=== PATIENT | female | born 1960 | race Caucasian/White ===

== ENCOUNTER 2017-10-27 12:14 | Observation (INO) | payer OTHER ==
--- NOTE | 2017-10-27 13:00 | RAD REPORT ---
EXAM DESCRIPTION: RAD - Chest Single View - 10/27/2017 12:54 pm CLINICAL HISTORY: Shortness of breath COMPARISON: None. FINDINGS: Portable technique limits examination quality. The lungs appear mildly emphysematous. There is fullness noted in the region of the AP window. While this may be related to the left pulmonary artery; mass or lymphadenopathy is also possible. The heart is normal in size. No displaced fractures. IMPRESSION: Soft tissue fullness in the left AP window noted. Recommend CT chest followup.
[2017-10-27 13:07] LABS: Absolute Lymphocytes (CBC) 2.4 K/uL (0.7-4.9); Absolute Monocytes 0.6 K/uL (0.1-1.3); Absolute Neutrophil 2.2 K/uL (1.8-8.0); Basophils % 0.9 % (0-1.3); Eosinophils % 3.3 % (0-4.4); Hematocrit 37.8 % (36.0-45.0); MCH 27.4 pg (27.0-35.0); MCV 83.1 fL (80-100); MPV 8.9 fL (7.6-11.3); Monocytes % 10.6 % (3.3-12.3); RBC Red Blood Cell Count 4.55 M/uL (3.86-4.86)
[2017-10-27 13:32] LABS: Bicarbonate 25 mEq/L (21-31); Glucose Level 106 mg/dL (65-120); Potassium 4.2 mEq/L (3.6-5.0); Sodium Level 135 mEq/L (135-145)
[2017-10-27 13:38] LABS: ALT/SGPT 18 IU/L (10-60); AST/SGOT 18 IU/L (10-42); Albumin 3.6 g/dL (3.2-5.5); Alkaline Phosphatase 65 IU/L (42-121); BUN Blood Urea Nitrogen 20 mg/dL (6-20); Bilirubin Direct < 0.1 mg/dL (0-0.2); Bilirubin Total 0.3 mg/dL (0.3-1.2); Magnesium 1.7 mg/dL (1.8-2.5); Protein, Total 6.2 g/dL (6.0-8.3)
[2017-10-27 13:45] LABS: Protime INR 1.02
[2017-10-27 14:30] LABS: Thyroid Stimulating Hormone < 0.02 uIU/mL (0.34-5.60)
--- NOTE | 2017-10-27 15:10 | RAD REPORT ---
EXAM DESCRIPTION: CT - Soft Tissue Neck W/Contr - 10/27/2017 2:39 pm CLINICAL HISTORY: Neck pain, thyromegaly with dysplasia TECHNIQUE: During dynamic enhancement using 100 milliliters nonionic IV contrast, axial 5 millimeter thick images of the neck were obtained. All CT scans are performed using dose optimization technique as appropriate and may include automated exposure control or mA/KV adjustment according to patient size. FINDINGS: Intracranial portion examination shows no suspicious findings. Mastoid air cells are clear . No paranasal sinus abnormality. Globes and orbital contents unremarkable. Patient has pronounced enlargement of the thyroid gland with innumerable low-density cysts and nodule s throughout the gland. Inferior left lobe extends into the upper mediastinum. There is a slight righ t deviation of the trachea but no reduction in trachea diameter. Left lobe posteriorly minimally abut s the esophagus. No vocal cord asymmetry or mass identifiable. Lymphoid tissue at the base of the tongue is mildly pro minent but no discrete mass or enhancement seen. No tonsillar enlargement. Parapharyngeal fat is norm al. No prevertebral soft tissue thickening. A few small scattered cervical lymph nodes are present. No bulky or abnormal lymphadenopathy. No acute vascular finding. No dissection or stenosis. No fracture or acute bone process seen. The patient has significant rotation of the C1 ring relative to the C2 body. C1 is normally positioned to the skullbase. The C1 rotation results in rotation of th e mandible relative to the upper neck soft tissues. This creates asymmetrically prominent soft tissue s on the right. An underlying ferritin G 0 mucosal mass is not identified. Patient has advanced disc and endplate degenerative change at C6-7. No significant bony foraminal enc roachment. IMPRESSION: Pronounced thyromegaly with innumerable variably sized low-density masses throughout the thyroid tissue. Inferior aspect of the left lobe extends into the upper mediastinum. The left greater than right thyromegaly causes minimal right deviation of the trachea but no compromi se in the airway diameter. No suspicious mass or lymphadenopathy in the neck soft tissues otherwise noted. Significant rotation of the skullbase and C1 ring relative to C2 causing right-sided rotation of the mandible and facial bones. Baseline for the patient is unknown. No acute bone finding. This could be a muscle spasm or torticollis pattern.
--- NOTE | 2017-10-27 15:15 | RAD REPORT ---
EXAM DESCRIPTION: CT - Thorax W/ Con - 10/27/2017 2:50 pm CLINICAL HISTORY: Thyromegaly, dysphagia COMPARISON: None. TECHNIQUE: Dynamically enhanced 5 mm thick images of the chest were obtained during administration o f 100 mL non-ionic IV contrast. All CT scans are performed using dose optimization technique as appropriate and may include automated exposure control or mA/KV adjustment according to patient size. FINDINGS: Thyromegaly is present with innumerable variably sized low-density masses are nodules thro ughout the gland. The inferior aspect of the left lobe extends into the upper mediastinum. Estimated gland size is 4.9 cm cc by 3.9 cm AP x 3.0 cm TR. Left lobe estimated size is 6.2 cm CC x 4.8 cm AP x 3.4 cm TR. No mass or infiltrate in the lung parenchyma. No pleural thickening or pleural effusion. No pneumotho rax. No chest wall mass or abnormal axillary lymphadenopathy. No mediastinal or hilar mass or lymphadenopathy otherwise noted. IMPRESSION: No mass or infiltrate of the lung parenchyma. No mediastinal or hilar suspicious mass or lymphadenopathy. The fullness in the left hilum in AP window region is summation of normal vasculature. No abnormality in this region. Thyromegaly with measurements detailed above. Inferior left lobe extends into the upper mediastinum.
[2017-10-27] MEDS ORDERED: PROPYLTHIOURACIL 50 MG TAB PO ONE (16:00)
--- NOTE | 2017-10-27 16:20 | EKG ---
Test Date: 2017-10-27 Test Time: 12:51:58 Heel Blacker: TRACI MEASUREMENT RESULTS: Intervals: Rate: 89 AZ: 134 QRSD: 88 QT: 378 QTc: 459 [place]: P: 33 AZ: 134 QRS: 18 T: 26 INTERPRETIVE STATEMENTS: Normal sinus rhythm Normal ECG Compared to ECG 01/08/2009 08:52:33 No significant changes Electronically Signed On 10-27-17 16:19:07 CDT by Feliciano Pizano
[2017-10-27] MEDS ORDERED: IPRATROPIUM BROM 0.5MG/2.5ML NEB PRN (16:34)
[2017-10-27] MEDS ORDERED: ALBUTEROL 2.5 MG/3 ML NEB SOL NEB PRN (16:34)
[2017-10-27] MEDS ORDERED: ONDANSETRON 4 MG/2 ML VIAL IV PRN (16:34)
--- NOTE | 2017-10-27 16:34 | EDPHYS ---
Physician Documentation [facility] Name: Jimena Mccray Age: 57 yrs Sex: Female : 1960 Arrival Date: 10/27/2017 Time: 12:21 Bed 7 Private MD: Caesar Chao ED Physician Sathya Tan HPI: 10/27 13:17 This 57 yrs old Female presents to ER via Ambulatory with complaints of jr8 Shortness Of Breath, Throat swelling, Fever. 13:17 Associated signs and symptoms: Pertinent positives: nervousness, tremor, palpitations. jr8 Severity of symptoms: At their worst the symptoms were moderate in the emergency department the symptoms are unchanged. The patient has experienced a previous episode. The patient has not recently seen a physician. Patient with history of thyroid goiter. Has been on metoprolol for tachycardia. Noted on labs to have hyperthyroidism secondary to the goiter. Stated that today noticed it getting larger. Having trouble swallowing. Stated that her heart rate was in the 130s this morning and feel horrible . 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 - Social history:: Smoking status: Patient uses tobacco products, smokes one-half pack cigarettes per day. ROS: 13:17 Eyes: Negative for injury, pain, redness, and discharge, Abdomen/GI: Negative for jr8 abdominal pain, nausea, vomiting, diarrhea, and constipation, Back: Negative for injury and pain, MS/Extremity: Negative for injury and deformity, Skin: Negative for injury, rash, and discoloration, Neuro: Negative for headache, weakness, numbness, tingling, and seizure. 13:17 ENT: Positive for difficulty swallowing, Negative for drainage from ear(s), ear pain, nasal discharge, rhinorrhea, sinus congestion, sinus pain, sore throat, difficulty handling secretions, hoarseness. 13:17 Neck: Positive for mass. 13:17 Cardiovascular: Positive for palpitations, Negative for chest pain, edema, orthopnea, paroxysmal nocturnal dyspnea. 13:17 Respiratory: Positive for shortness of breath, Negative for cough, dyspnea on exertion, hemoptysis, orthopnea, pleurisy, sputum production, wheezing. Exam: 13:17 Eyes: Pupils equal round and reactive to light, extra-ocular motions intact. Lids and jr8 lashes normal. Conjunctiva and sclera are non-icteric and not injected. Cornea within normal limits. Periorbital areas with no swelling, redness, or edema. ENT: Nares patent. No nasal discharge, no septal abnormalities noted. Tympanic membranes are normal and external auditory canals are clear. Oropharynx with no redness, swelling, or masses, exudates, or evidence of obstruction, uvula midline. Mucous membranes moist. Cardiovascular: Sinust tachycardia with a normal S1 and S2. No gallops, murmurs, or rubs. Normal PMI, no JVD. No pulse deficits. Respiratory: Lungs have equal breath sounds bilaterally, clear to auscultation and percussion. No rales, rhonchi or wheezes noted. No increased work of breathing, no retractions or nasal flaring. Abdomen/GI: Soft, non-tender, with normal bowel sounds. No distension or tympany. No guarding or rebound. No evidence of tenderness throughout. Back: No spinal tenderness. No costovertebral tenderness. Full range of motion. Skin: Warm, dry with normal turgor. Normal color with no rashes, no lesions, and no evidence of cellulitis. MS/ Extremity: Pulses equal, no cyanosis. Neurovascular intact. Full, normal range of motion. Neuro: Awake and alert, GCS 15, oriented to person, place, time, and situation. Cranial nerves II-XII grossly intact. Motor strength 5/5 in all extremities. Sensory grossly intact. Cerebellar exam normal. Normal gait. 13:17 Neck: Thyroid: enlargement, that is moderate, Trachea: is midline with no obvious abnormalities, ROM/movement: is normal, Lymph nodes: no appreciated lymphadenopathy. Vital Signs: 12:27 BP 130 / 74; Pulse 102; Resp 19; Temp 98.0; Pulse Ox 93% on R/A; Weight 74.84 kg; aj Height 5 ft. 6 in. (167.64 cm); 13:30 BP 128 / 68; Pulse 98; Resp 18; Pulse Ox 100% on R/A; hb 15:30 BP 125 / 79; Pulse 87; Resp 17; Pulse Ox 99% on R/A; Pain 0/10; hb 16:30 BP 118 / 86; Pulse 84; Resp 16; Pulse Ox 100% on R/A; hb 17:32 BP 124 / 65; Pulse 82; Resp 17; Pulse Ox 100% on R/A; Pain 0/10; hb 12:27 Body Mass Index 26.63 (74.84 kg, 167.64 cm) aj MDM: 12:31 Patient medically screened. jr8 16:29 Data reviewed: vital signs, nurses notes, lab test result(s), EKG, radiologic studies, jr8 CT scan, plain films. Counseling: I had a detailed discussion with the patient and/or guardian regarding: the historical points, exam findings, and any diagnostic results supporting the discharge/admit diagnosis, lab results, radiology results, the need for further work-up and treatment in the hospital. ED course: Consulted Dr. Yeung. From a surgical stand point nothing can be done until she is medically stable from the hyperthyroidism. Can f/u for FNA later.. 16:33 Physician consultation: Una Jeff MD was called at 16:33, was contacted at 16:33, jr8 regarding admission, to the telemetry unit. consult, patient's condition, and will see patient. 10/27 12:41 Order name: Basic Metabolic Panel; Complete Time: 14:33 10/27 12:41 Order name: BNP; Complete Time: 13:44 10/27 12:41 Order name: CBC with Diff; Complete Time: 13:16 10/27 12:41 Order name: LFT's; Complete Time: 14:33 10/27 12:41 Order name: Magnesium; Complete Time: 14:33 10/27 12:41 Order name: PT-INR; Complete Time: 14:10 10/27 12:41 Order name: XRAY Chest (1 view); Complete Time: 13:01 10/27 12:42 Order name: TSH; Complete Time: 14:33 10/27 12:42 Order name: T4 Free; Complete Time: 14:33 10/27 15:03 Order name: Urine Dipstick--Ancillary (enter results); Complete Time: 17:01 bd 10/27 16:40 Order name: CBC with Automated Diff EDMS 10/27 16:40 Order name: CBC with Automated Diff EDMS 10/27 16:40 Order name: Comprehensive Metabolic Panel [facility] 10/27 16:40 Order name: Comprehensive Metabolic Panel [facility] 10/27 12:41 Order name: EKG; Complete Time: 12:42 [facility] 10/27 12:41 Order name: Cardiac monitoring; Complete Time: 12:58 [facility] 10/27 12:41 Order name: EKG - Nurse/Tech; Complete Time: 12:58 [facility] 10/27 12:41 Order name: IV Saline Lock; Complete Time: 12:58 [facility] 10/27 12:41 Order name: Labs collected and sent; Complete Time: 12:58 [facility] 10/27 12:41 Order name: O2 Per Protocol; Complete Time: 12:58 [facility] 10/27 12:41 Order name: O2 Sat Monitoring; Complete Time: 12:58 [facility] 10/27 12:41 Order name: Urine Dipstick-Ancillary (obtain specimen); Complete Time: 15:55 [facility] 10/27 13:45 Order name: CT Soft Tissue Neck W/contr; Complete Time: 15:13 [facility] 10/27 13:45 Order name: CT Chest W/ Con; Complete Time: 15:18 [facility] 10/27 16:40 Order name: Heart Healthy EDAR Administered Medications: No medications were administered Disposition: 18:47 Co-signature as Attending Physician, Sathya Tan MD. rn Disposition: 10/27/17 16:34 Hospitalization ordered by Una Jeff for Observation. Preliminary diagnosis is Thyrotoxicosis [hyperthyroidism]. - Bed requested for Telemetry/MedSurg (observation). - Status is Observation. hb - Condition is Stable. - Problem is new. - Symptoms have improved. UTI on Admission? No Signatures: Dispatcher [employer] [facility] Cindy Kim Amanda, RN RN aj Nieto, Roman, MD MD rn Roszak, Josh, PA PA [facility] Astrid Garcia RN RN hb Corrections: (The following items were deleted from the chart) 13:20 13:17 Eyes: Negative for injury, pain, redness, and discharge, [place] [id number] 17:03 16:34 Hospitalization Ordered by Una Jeff MD for Observation. Preliminary diagnosis bd is Thyrotoxicosis [hyperthyroidism]. Bed requested for Telemetry/MedSurg (observation). Status is Observation. Condition is Stable. Problem is new. Symptoms have improved. UTI on Admission? No. jr8 18:34 17:03 10/27/2017 16:34 Hospitalization Ordered by Una Jeff MD for Observation. hb Preliminary diagnosis is Thyrotoxicosis [hyperthyroidism]. Bed requested for Telemetry/MedSurg (observation). Status is Observation. Condition is Stable. Problem is new. Symptoms have improved. UTI on Admission? No. bd
--- NOTE | 2017-10-27 16:34 | ER ---
Nurse's Notes [facility] Name: Jimena Mccray Age: 57 yrs Sex: Female : 1960 Arrival Date: 10/27/2017 Time: 12:21 Bed 7 Private MD: Caesar Chao Diagnosis: Thyrotoxicosis [hyperthyroidism] Presentation: 10/27 12:25 Presenting complaint: Patient states: Reports thyroid enlargement, SOB, and aj palpitations that started yesterday. Transition of care: patient was not received from another setting of care. Onset of symptoms was October 26, 2017. Care prior to arrival: None. 12:25 Method Of Arrival: Ambulatory aj 12:25 Acuity: АННА 3 aj 13:13 Initial Sepsis Screen: Does the patient meet any 2 criteria? No. Patient's initial hb sepsis screen is negative. Does the patient have a suspected source of infection? No. Patient's initial sepsis screen is negative. Triage Assessment: 12:27 General: Appears in no apparent distress. uncomfortable, Behavior is calm, cooperative, aj appropriate for age. Pain: Denies pain. EENT: swelling to thyroid. Neuro: Level of Consciousness is awake, alert, obeys commands, Oriented to person, place, time, situation, Appropriate for age. Respiratory: Reports shortness of breath at rest Airway is patent Respiratory effort is even, unlabored, Respiratory pattern is symmetrical, tachypnea Onset: The symptoms/episode began/occurred yesterday, the patient has mild shortness of breath. Derm: Skin is intact, is healthy with good turgor, Skin is pink, warm \T\ dry. normal. 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 - Social history:: Smoking status: Patient uses tobacco products, smokes one-half pack cigarettes per day. Screenin:45 Abuse screen: Denies threats or abuse. Denies injuries from another. Nutritional hb screening: No deficits noted. Tuberculosis screening: No symptoms or risk factors identified. Fall Risk None identified. Assessment: 12:40 General: Appears in no apparent distress. Behavior is calm, cooperative. Pain: Denies hb pain. Neuro: Level of Consciousness is awake, alert, obeys commands, Oriented to person, place, time, situation. Cardiovascular: Heart tones S1 S2 present Capillary refill < 3 seconds Patient's skin is warm and dry. Rhythm is regular. Respiratory: Airway is patent Trachea midline Respiratory effort is even, unlabored, Respiratory pattern is regular, symmetrical, Breath sounds are clear bilaterally. Parent/caregiver reports the patient having shortness of breath on exertion. GI: No signs and/or symptoms were reported involving the gastrointestinal system. : No signs and/or symptoms were reported regarding the genitourinary system. EENT: Reports neck swelling x 2 days. Derm: No signs and/or symptoms reported regarding the dermatologic system. Skin is intact, is healthy with good turgor, Skin is pink, warm \T\ dry. Musculoskeletal: No signs and/or symptoms reported regarding the musculoskeletal system. 13:25 Reassessment: Patient appears in no apparent distress at this time. No changes from previously documented assessment. Patient and/or family updated on plan of care and expected duration. Pain level reassessed. Patient is alert, oriented x 3, equal unlabored respirations, skin warm/dry/pink. 14:15 Reassessment: Patient appears in no apparent distress at this time. No changes from previously documented assessment. Patient and/or family updated on plan of care and expected duration. Pain level reassessed. Patient is alert, oriented x 3, equal unlabored respirations, skin warm/dry/pink. 14:30 Reassessment: pt in imaging at this time, not available for vs. tw2 15:30 Reassessment: Patient appears in no apparent distress at this time. Patient and/or hb family updated on plan of care and expected duration. Pain level reassessed. Patient is alert, oriented x 3, equal unlabored respirations, skin warm/dry/pink. 16:30 Reassessment: Patient appears in no apparent distress at this time. Patient and/or hb family updated on plan of care and expected duration. Pain level reassessed. Patient is alert, oriented x 3, equal unlabored respirations, skin warm/dry/pink. Admission ordered, awaiting room assignment at this time. 17:30 Reassessment: Patient appears in no apparent distress at this time. Patient and/or hb family updated on plan of care and expected duration. Pain level reassessed. Patient is alert, oriented x 3, equal unlabored respirations, skin warm/dry/pink. 17:33 Reassessment: Attempted to call report to floor, receiving nurse unavailable per hb PATSY Stone. Vital Signs: 12:27 BP 130 / 74; Pulse 102; Resp 19; Temp 98.0; Pulse Ox 93% on R/A; Weight 74.84 kg; aj Height 5 ft. 6 in. (167.64 cm); 13:30 BP 128 / 68; Pulse 98; Resp 18; Pulse Ox 100% on R/A; hb 15:30 BP 125 / 79; Pulse 87; Resp 17; Pulse Ox 99% on R/A; Pain 0/10; hb 16:30 BP 118 / 86; Pulse 84; Resp 16; Pulse Ox 100% on R/A; hb 17:32 BP 124 / 65; Pulse 82; Resp 17; Pulse Ox 100% on R/A; Pain 0/10; hb 12:27 Body Mass Index 26.63 (74.84 kg, 167.64 cm) aj ED Course: 12:21 Patient arrived in ED. mr 12:21 Caesar Chao MD is Private Physician. mr 12:26 Triage completed. aj 12:27 Arm band placed on left wrist. Patient placed in an exam room. aj 12:31 Nabil Henao PA is PHCP. jr8 12:31 Sathya Tan MD is Attending Physician. jr8 12:40 Patient has correct armband on for positive identification. Placed in gown. Bed in low hb position. Call light in reach. Side rails up X 1. hospital monitor on. Pulse ox on. NIBP on. 12:40 Inserted saline lock: 20 gauge in right antecubital area, using aseptic technique. hb Blood collected. 12:53 XRAY Chest (1 view) In Process Unspecified. EDMS 13:06 EKG done, by network technology instructor. reviewed by Sathya Tan MD. vh 13:10 Astrid Garcia, RN is Primary Nurse. hb 14:39 CT Soft Tissue Neck W/contr In Process Unspecified. EDMS 14:39 CT completed. Patient tolerated procedure well. Patient moved to CT via wheelchair. Patient moved back from CT. 14:50 CT Chest W/ Con In Process Unspecified. EDMS 16:33 Una Jeff MD is Hospitalizing Provider. jr8 18:01 No provider procedures requiring assistance completed. Patient admitted, IV remains in hb place. Administered Medications: No medications were administered Outcome: 16:34 Decision to Hospitalize by Provider. jrYennifer 18:01 Admitted to Med/surg accompanied by tech, family with patient, via wheelchair, room hb 415, with chart, Report called to PATSY Oconnell 18:01 Condition: stable 18:01 Instructed on the need for admit, Demonstrated understanding of instructions. 18:34 Patient left the ED. Signatures: Dispatcher [employer] EDMS Angelique Seals, RN Mikki Nelson Susan sj Roszak, Josh, PA PA jr8 Maribel Aranda Heather, RN RN Marine Paz RN RN tw2
[2017-10-27 16:58] LABS: Urine Blood NEGATIVE (NEG); Urine Glucose NEGATIVE (NEG); Urine Protein NEGATIVE (NEG); Urine pH 6.5 (5.0-7.0)
[2017-10-27] MEDS ORDERED: MAGNESIUM SULFATE 1 gm IVPB 1 GM/100 ML BAG IV ONE (20:18)
[2017-10-27] MEDS: NA CHLORIDE 0.9% 1,000 ML IV SCH (22:05)
[2017-10-27] MEDS: ENOXAPARIN 40 MG/0.4 ML SQ SCH (22:06)
[2017-10-27] MEDS: METOPROLOL TAR 50 MG TAB PO SCH (22:06)
[2017-10-27] MEDS: PROPYLTHIOURACIL 50 MG TAB PO SCH (22:09)
[2017-10-27 23:33] VITALS: BMI 22.6
[2017-10-28] MEDS: ACETAMINOPHEN 500 MG TAB PO PRN ×2 (02:37→09:36)
--- NOTE | 2017-10-28 02:49 | HP ---
Date of Admission: 10/27/2017 The patient seen and examined. Code Status: Full. Chief Complaint: Goiter, palpitations. Primary Care Physician: Dr. Palmer. History Of Present Illness: The patient is a 57-year-old female with history of goiter for the past year, who was not on any treatment for her hyperthyroidism, comes in with difficulty swallowing, palp itations, anxiety, and sweating. The patient also had some nausea. The patient's symptoms are const ant, moderate, progressively worsening. She noticed her heart rate to be in the 130. 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 In the ER, her vital signs showed tachycardia, tachypnea, blood pressure wa s elevated. The patient was started on PTU and imaging study showed large goiter which extends into the mediastinum and also deviates the trachea but no compromise on the airway diameter. The patient was then referred for admission for goiter. When seen in the ER, the patient was awake, alert, orien luis x3, in some mild distress. Past Medical History: Hyperthyroidism, goiter, anxiety disorder. Past Surgical History: . 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 Allergies: TO PENICILLIN AND MORPHINE, WHICH CAUSE ANAPHYLAXIS. Social History: The patient smokes about half pack every other day. Drinks socially. No illicit dr ug use. Works as a nurse. Family History: Positive for cancer and heart disease in the parents. Review of Systems: An 11-point system reviewed and negative except as per HPI. Physical Examination: Vital Signs: Blood pressure 130/74, pulse 102, respirations 19, temperature 98, pulse ox 93% on room air. General: Awake, alert, oriented x3, in some mild distress. Appears older than stated age. Somewhat ill appearing. HEENT: Normocephalic, atraumatic. PERRLA. EOMI. Moist mucous membranes. Oropharynx is clear. Po or dentition. Conjunctiva is anicteric. Neck: Large goiter on the left. Mild tenderness to palpation. Trachea deviated to the right. Supp le. CV: S1, S2. Sinus tachycardia. Peripheral pulses present. No murmurs. Respiratory: Clear to auscultation bilaterally. No wheezing. No stridor. No use of accessory musc les. Gastrointestinal: Abdomen is soft, nontender, nondistended. Positive bowel sounds. Extremities: No clubbing, cyanosis, or edema. No calf tenderness. Neuro: Cranial nerves 2 through 12 intact grossly, 5/5 muscle strength bilateral upper and lower ext remities. Sensation intact to light touch. Speech is normal. Skin: No rashes. Normal skin turgor. Psych: Mood is anxious. Affect is congruent with mood. Insight and judgment are fair. Laboratory Data: Sodium 135, potassium 4.2, chloride 105, CO2 25, BUN 20, creatinine 0.38, glucose 1 06, calcium 8.7, magnesium 1.7. TSH less than 0.02. Free T4 3.13. INR 1.02. WBC 5.4, H and H 12.5 and 37.8, platelets 213, neutrophils 41%. UA shows negative nitrite, trace leukocyte, and negative glucose. Imaging Studies: CT of the chest shows no mass or infiltrate of the lung parenchyma. No mediastinal , hilar, suspicious mass, or any lymphadenopathy. Fullness of the left hilum in AP window region wit h some mention of normal vasculature. No abnormality in this region. Thyromegaly with measurements as detailed above, 4.9 cm x 3.9 x 3 cm. Inferior left lobe extends into the upper mediastinum. CT s oft tissue neck shows pronounced thyromegaly with innumerable variably sized low-density masses throu ghout the thyroid tissue, inferior aspect of the left lobe extends into the upper mediastinum. The l eft greater than right thyromegaly causes minimal right deviation of the trachea but no compromise of the airway diameter. No suspicious mass or lymphadenopathy in the neck tissues noted otherwise. Si gnificant rotation of the skull base and C1 ring relative to C2 causing right-sided rotation of the m andible and facial bones, baseline for the patient is unknown. No acute bone finding. This could be muscle spasm or torticollis pattern. Assessment: A 57-year-old female with, 1.Thyrotoxicosis. We will continue with PTU every 8 hours. We will watch for signs of thyroid stor m. We will continue with beta-blockers, IV fluids, continuous pulse ox, and monitor blood pressure c losely. If condition deteriorates, we will transfer to ICU. I spoke with Dr. Yeung, ENT on the ph one. No surgical input at this time. We will follow up with her as an outpatient for iodine scan an d FNA and subsequent thyroidectomy if the patient chooses. 2.Generalized anxiety disorder. The patient is on benzodiazepines chronically. 3.Gastrointestinal and deep venous thrombosis prophylaxis with PPI and Lovenox. Plan: 1.Admit the patient to Med-Surg, place as observation. 2.Nicotine dependence with cigarette smoking, counseled. ASHLEY Voice ID: [id number]
[2017-10-28] MEDS: NA CHLORIDE 0.9% 1,000 ML IV SCH (02:54)
[2017-10-28] MEDS: LORAZEPAM 0.5 MG TABLET PO SCH ×2 (03:28→09:00)
[2017-10-28 05:23] LABS: Absolute Lymphocytes (CBC) 1.8 K/uL (0.7-4.9); Absolute Monocytes 0.5 K/uL (0.1-1.3); Absolute Neutrophil 1.2 K/uL (1.8-8.0); Basophils % 0.7 % (0-1.3); Eosinophils % 4.2 % (0-4.4); Hematocrit 35.8 % (36.0-45.0); Lymphocytes % 49.1 % (15.3-44.8); MCH 28.1 pg (27.0-35.0); MCV 81.9 fL (80-100); MPV 8.8 fL (7.6-11.3); RBC Red Blood Cell Count 4.37 M/uL (3.86-4.86)
[2017-10-28 06:02] LABS: ALT/SGPT 16 IU/L (10-60); AST/SGOT 17 IU/L (10-42); Albumin 3.3 g/dL (3.2-5.5); Alkaline Phosphatase 67 IU/L (42-121); BUN Blood Urea Nitrogen 16 mg/dL (6-20); Bicarbonate 26 mEq/L (21-31); Bilirubin Total 0.3 mg/dL (0.3-1.2); Glucose Level 112 mg/dL (65-120); Potassium 4.4 mEq/L (3.6-5.0); Protein, Total 5.6 g/dL (6.0-8.3); Sodium Level 140 mEq/L (135-145)
[2017-10-28 09:02] VITALS: O2SAT 97
[2017-10-28] MEDS: METOPROLOL TAR 50 MG TAB PO SCH (09:35)
[2017-10-28] MEDS: PROPYLTHIOURACIL 50 MG TAB PO SCH (09:36)
[2017-10-28] MEDS: ENOXAPARIN 40 MG/0.4 ML SQ SCH (09:37)
[2017-10-28 09:40] VITALS: BP 138/67
[2017-10-28 12:41] VITALS: TEMP 97.5
--- NOTE | 2017-10-28 14:55 | DS ---
Date of Discharge: 10/28/2017 Admitting Diagnoses: 1.Thyrotoxicosis. 2.Generalized anxiety disorder. 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 2.Generalized anxiety disorder, on benzodiazepine. Hospital Course: The patient is a 57-year-old female, who was in her usual state of health, who came in for worsening of her goiter, which had became more enlarged and had difficulty that had difficult y swallowing, increased palpitations and elevated blood pressure. The patient was started on PTU. I maging studies were obtained, which showed significant thyromegaly. The patient's airway was patent. She was saturating 100% on room air. The patient was started on PTU and her symptoms improved. He r metoprolol dose was increased. She had resolution of her symptoms including tachycardia, anxiety, and blood pressure elevation. The patient will follow up with ENT Dr. Yeung as an outpatient for f urther workup including iodine scan and possible FNA versus surgery. The patient's workup including TSH was less than 0.02. Free T4 was high at 3.13. The patient was then discharged home in a stable condition. Activity: As tolerated. No driving or operating heavy machinery while on benzodiazepines. Followup: 1.Follow up with primary care physician, Dr. Chao in 1 week. 2.Follow up with ENT, Dr. Yeung in 1 week. Return to ER for worsening condition. Diet: Heart healthy. Medications: As per medication reconciliation list. Physical Examination: General: Awake, alert, oriented, no acute distress CV: S1, S2. No murmurs. Respiratory: Moving air well bilaterally. Abdomen: Soft, nontender, nondistended. Positive bowel sounds. Extremities: No clubbing, cyanosis, edema. Neurologic: Nonfocal. Neck: Has enlarged goiter on the left. SA/MODL Voice ID: [id number] Report ID: [id number]
== END 2017-10-28 10:56 | disposition home or self-care (01) ==
LOC: ER 12:14 → ERHOLD 17:00 → 4TH 17:59
PROVIDERS: ADMIT Family Medicine; ATTEND Family Medicine
DX: E05.00 Thyrotoxicosis with diffuse goiter without thyrotoxic crisis or storm (principal); F41.9 Anxiety disorder, unspecified; Z88.0 Allergy status to penicillin; F17.210 Nicotine dependence, cigarettes, uncomplicated
CPT/HCPCS: 36415; 70491; 71045; 71260; 80048; 80053; 80076; 81003; 83735; 83880; 84439; 84443; 85025; 85610; 93005; 94760; 99285; G0378; J1650; J2405; J3475; J7030; Q9967